=== PATIENT | female | born 1950 | race Caucasian/White ===

== ENCOUNTER 2018-02-28 06:00 | Emergency (ER) | payer MEDICARE, OTHER ==
[~2018-02-28] VITALS: Ht 172.7 cm; Wt 101.6 kg
[2018-02-28] MEDS ORDERED: SYNTHROID200 MCG PO (06:11)
[2018-02-28] MEDS ORDERED: CARAFATE1 GM PO (12:59)
[2018-02-28] MEDS ORDERED: PRILOSEC OTC20 MG PO (12:59)
--- NOTE | 2018-02-28 15:56 | EKG ---
[facility] [address] [facility] [place], [place] [address] Signed Sinus tachycardia Otherwise normal ECG No previous ECGs available Confirmed by MARY GARG MD [id number] on 02/28/2018 3:56:32 PM Electronically Signed By: MARY GARG MD 02/28/18 1556 PATIENT NAME: ROXANE THOMASKENYON Electrocardiogram DATE OF : 52 PHYSICIAN: MARY GARG MD REPORT #: [id number] REPORT IS CONFIDENTIAL AND NOT TO BE RELEASED WITHOUT AUTHORIZATION
== END 2018-02-28 13:19 | disposition home or self-care (01) ==
LOC: ED 06:00
DX: K21.9 Gastro-esophageal reflux disease without esophagitis (principal); R07.89 Other chest pain; I10 Essential (primary) hypertension; E03.9 Hypothyroidism, unspecified; F17.200 Nicotine dependence, unspecified, uncomplicated; Z79.899 Other long term (current) drug therapy
CPT/HCPCS: 71045; 71046; 71260; 80053; 84484; 85025; 93005; 93010; 96374; 96375; 99285-25; J2270; J2405; Q9967